=== PATIENT | female | born 1960 | race Caucasian/White ===

== ENCOUNTER 2022-03-10 09:27 | Inpatient (IN) ==
[2022-03-10] MEDS ORDERED: Morphine Sulfate 2 MG/ML SYRINGE IVP STA (13:02)
[2022-03-10 14:23] LABS: Immature Granulocytes % 0.5 % (0-4); Mean Corpuscular Hemoglobin 32.2 pg (28.0-33.3)
[2022-03-10 14:25] LABS: Basophils % 0.2 %; Eosinophils # 0.1 K/mcL (0.0-0.6); Eosinophils % 0.6 %; Hematocrit 39.4 % (35.3-44.9); Hemoglobin 13.5 g/dL (11.5-15.4); Immature Platelets 2.5 % (1.1-6.1); Lymphocytes # 0.5 K/mcL (0.6-4.6); Lymphocytes % 5.9 %; Mean Corpuscular HGB Conc 34.3 g/dL (31.6-35.5); Mean Platelet Volume 11.6 fL (9.4-12.4); Monocytes # 0.7 K/mcL (0.0-1.3); Monocytes % 8.1 %; Neutrophils # 6.9 K/mcL (1.6-8.9); Red Blood Count 4.19 M/mcL (3.82-4.97); Red Cell Distribution Width 12.2 % (11.5-14.5); Segmented Neutrophils % 84.7 %; White Blood Count 8.1 K/mcL (4.3-11.1)
[2022-03-10 14:30] LABS: Platelet Count 82 K/mcL (140-400)
[2022-03-10 14:35] LABS: Prothrombin Time 10.6 Seconds (9.4-12.1)
[2022-03-10 14:38] LABS: Activated Partial Thrombo Time 42.5 Seconds (26.0-36.0)
[2022-03-10] MEDS ORDERED: Ondansetron 4 MG/2 ML VIAL IVP PRN (15:44)
[2022-03-10] MEDS ORDERED: Naloxone 0.4 MG/ML INJ IVP PRN (15:44)
[2022-03-10 17:26] LABS: BUN/Creatinine Ratio 22 (6-26); Blood Urea Nitrogen 20 mg/dL (8-23); Calcium 9.9 mg/dL (8.6-10.3); Carbon Dioxide 27 mEq/L (23-29); Chloride 103 mEq/L (98-107); Glucose 96 mg/dL (70-105); Osmolality,Calculated 288 (280-300); Potassium 4.2 mEq/L (3.5-5.1); Sodium 138 mEq/L (136-145); eGFR For African Americans > 60 (> 60); eGFR For Non-African Americans > 60 (> 60)
[2022-03-10] MEDS: Ringers Solution, Lactated 1,000 ML IVC SCH (18:24)
[2022-03-10] MEDS: *HR* OxyCODONE Immed Rel 5 MG TABLET PO PRN (18:51)
[2022-03-10 20:23] LABS: Amorphous Sediment,Urine Few per hpf (None-Few); Bilirubin,Urine Negative (Negative); Blood,Urine Negative (Negative); Clarity,Urine Clear (Clear); Color,Urine Light-Yellow (Yellow); Glucose,Urine (UA) Normal (Normal); Ketones,Urine Negative (Negative); Leukocyte Esterase,Urine Trace (Negative); Mucus,Urine Few per lpf (None-Few); Nitrite,Urine Negative (Negative); Protein,Urine Negative (Neg-Trace); RBC,Urine 0-3 per hpf (0-3); Specific Gravity,Urine 1.015 (1.010-1.025); Squamous Epithelial Cell,Urine Few per hpf (None-Few); Urobilinogen,Urine Normal (Normal)
[2022-03-10] MEDS: Acetaminophen 325 MG TABLET PO PRN (23:20)
[2022-03-11] MEDS: *HR* OxyCODONE Immed Rel 5 MG TABLET PO PRN ×3 (03:31→18:06)
[2022-03-11 07:26] LABS: Basophils % 0.4 %; Eosinophils # 0.3 K/mcL (0.0-0.6); Eosinophils % 6.1 %; Hematocrit 34.5 % (35.3-44.9); Hemoglobin 11.7 g/dL (11.5-15.4); Immature Granulocytes % 0.8 % (0-4); Immature Platelets 2.4 % (1.1-6.1); Lymphocytes # 0.5 K/mcL (0.6-4.6); Lymphocytes % 8.6 %; Mean Corpuscular HGB Conc 33.9 g/dL (31.6-35.5); Mean Corpuscular Hemoglobin 32.3 pg (28.0-33.3); Mean Corpuscular Volume 95.3 fL (83.0-100.0); Mean Platelet Volume 9.5 fL (9.4-12.4); Monocytes # 0.6 K/mcL (0.0-1.3); Monocytes % 11.7 %; Neutrophils # 3.8 K/mcL (1.6-8.9); Red Blood Count 3.62 M/mcL (3.82-4.97); Red Cell Distribution Width 12.2 % (11.5-14.5); Segmented Neutrophils % 72.4 %; White Blood Count 5.2 K/mcL (4.3-11.1)
[2022-03-11 07:39] LABS: Platelet Count 74 K/mcL (140-400)
[2022-03-11 07:40] LABS: Albumin 3.9 g/dL (3.5-5.7); Albumin/Globulin Ratio 1.5 (1.1-2.2); Bilirubin,Direct 0.2 mg/dL (0.0-0.2); Bilirubin,Indirect 1.2 mg/dL (0.0-1.0); Bilirubin,Total 1.4 mg/dL (0.3-1.0); Globulin 2.6 g/dL (2.4-3.5); Total Protein 6.5 g/dL (6.4-8.9)
[2022-03-11 08:01] LABS: BUN/Creatinine Ratio 19 (6-26); Blood Urea Nitrogen 18 mg/dL (8-23); Calcium 8.4 mg/dL (8.6-10.3); Carbon Dioxide 21 mEq/L (23-29); Chloride 103 mEq/L (98-107); Glucose 92 mg/dL (70-105); Magnesium 1.8 mg/dL (1.6-2.6); Osmolality,Calculated 282 (280-300); Potassium 4.1 mEq/L (3.5-5.1); Sodium 135 mEq/L (136-145); eGFR For African Americans > 60 (> 60); eGFR For Non-African Americans > 60 (> 60)
[2022-03-11] MEDS: Acetaminophen 325 MG TABLET PO PRN ×2 (10:19→18:07)
[2022-03-11] MEDS: lisinopriL 10 MG TABLET PO SCH (10:19)
[2022-03-11] MEDS ORDERED: *HR* Enoxaparin 40 MG/0.4 ML SYRINGE SQ ONE (16:17)
[2022-03-11] MEDS: Ringers Solution, Lactated 1,000 ML IVC SCH (23:50)
[2022-03-12] MEDS: Ringers Solution, Lactated 1,000 ML IVC SCH ×2 (00:01→21:36)
[2022-03-12 04:57] LABS: Basophils % 0.6 %; Eosinophils # 0.3 K/mcL (0.0-0.6); Eosinophils % 5.5 %; Hematocrit 34.5 % (35.3-44.9); Hemoglobin 11.5 g/dL (11.5-15.4); Immature Granulocytes % 0.6 % (0-4); Lymphocytes # 0.4 K/mcL (0.6-4.6); Lymphocytes % 7.9 %; Mean Corpuscular HGB Conc 33.3 g/dL (31.6-35.5); Mean Corpuscular Hemoglobin 31.9 pg (28.0-33.3); Mean Corpuscular Volume 95.6 fL (83.0-100.0); Mean Platelet Volume 10.5 fL (9.4-12.4); Monocytes # 0.6 K/mcL (0.0-1.3); Monocytes % 10.7 %; Red Blood Count 3.61 M/mcL (3.82-4.97); Segmented Neutrophils % 74.7 %; White Blood Count 5.3 K/mcL (4.3-11.1)
[2022-03-12 04:58] LABS: Platelet Count 72 K/mcL (140-400)
[2022-03-12 05:13] LABS: BUN/Creatinine Ratio 18 (6-26); Blood Urea Nitrogen 17 mg/dL (8-23); Carbon Dioxide 25 mEq/L (23-29); Chloride 101 mEq/L (98-107); Glucose 106 mg/dL (70-105); Magnesium 1.8 mg/dL (1.6-2.6); Osmolality,Calculated 278 (280-300); Phosphorous 3.7 mg/dL (2.7-4.5); Potassium 4.2 mEq/L (3.5-5.1); Sodium 133 mEq/L (136-145); eGFR For African Americans > 60 (> 60); eGFR For Non-African Americans > 60 (> 60)
[2022-03-12] MEDS ORDERED: CeFAZolin Syr 2,000MG/20 ML 2,000 MG/20 ML SYRINGE IVPB ONE (10:32)
[2022-03-12] MEDS ORDERED: *HR* Propofol 200 MG/20 ML VIAL IVP ONE (10:45)
[2022-03-12] MEDS ORDERED: *HR* FentaNYL (PF) 100 MCG/2 ML VIAL ONE (10:46)
[2022-03-12] MEDS ORDERED: Lidocaine -MPF 2% 5 ML VIAL ONE (10:46)
[2022-03-12] MEDS ORDERED: Ondansetron 4 MG/2 ML VIAL ONE (10:46)
[2022-03-12] MEDS ORDERED: *HR* Midazolam HCl 2 MG/2 ML VIAL ONE (10:46)
[2022-03-12] MEDS ORDERED: *HR* HYDROmorphone PF 0.5 MG/0.5 ML SYRINGE IVP PRN (10:50)
[2022-03-12] MEDS ORDERED: *HR* FentaNYL (PF) 100 MCG/2 ML VIAL IVP PRN (10:50)
[2022-03-12] MEDS ORDERED: Ropivacaine/PF 0.5% 30 ML VIAL ONE (11:02)
[2022-03-12] MEDS ORDERED: *HR* HYDROMORPHONE 2 MG/ML VIAL ONE (11:50)
[2022-03-12] MEDS ORDERED: EPHEDrine 50 MG/ML VIAL ONE (12:10)
[2022-03-12] MEDS: lisinopriL 10 MG TABLET PO SCH (16:55)
[2022-03-12] MEDS: Acetaminophen 325 MG TABLET PO PRN (21:36)
[2022-03-12] MEDS: CeFAZolin 2,000 MG/120 ML BAG IVPB SCH (21:37)
[2022-03-13] MEDS: Ringers Solution, Lactated 1,000 ML IVC SCH (03:26)
[2022-03-13] MEDS: CeFAZolin 2,000 MG/120 ML BAG IVPB SCH (03:55)
[2022-03-13 06:56] LABS: Basophils % 0.2 %
[2022-03-13 06:58] LABS: Eosinophils % 0.6 %; Hemoglobin 8.8 g/dL (11.5-15.4); Immature Granulocytes % 0.8 % (0-4); Immature Platelets 2.4 % (1.1-6.1); Lymphocytes # 0.4 K/mcL (0.6-4.6); Mean Corpuscular HGB Conc 33.8 g/dL (31.6-35.5); Mean Corpuscular Hemoglobin 31.7 pg (28.0-33.3); Mean Corpuscular Volume 93.5 fL (83.0-100.0); Mean Platelet Volume 10.5 fL (9.4-12.4); Monocytes # 0.6 K/mcL (0.0-1.3); Monocytes % 9.7 %; Neutrophils # 5.2 K/mcL (1.6-8.9); Nucleated Red Blood Cells 0.3 /100 WBC (0); Red Blood Count 2.78 M/mcL (3.82-4.97); Red Cell Distribution Width 11.8 % (11.5-14.5); Segmented Neutrophils % 82.7 %; White Blood Count 6.3 K/mcL (4.3-11.1)
[2022-03-13 07:01] LABS: Platelet Count 84 K/mcL (140-400)
[2022-03-13 07:16] LABS: BUN/Creatinine Ratio 23 (6-26); Blood Urea Nitrogen 20 mg/dL (8-23); Calcium 8.5 mg/dL (8.6-10.3); Carbon Dioxide 26 mEq/L (23-29); Chloride 103 mEq/L (98-107); Glucose 131 mg/dL (70-105); Magnesium 1.8 mg/dL (1.6-2.6); Osmolality,Calculated 284 (280-300); Potassium 4.6 mEq/L (3.5-5.1); Sodium 135 mEq/L (136-145); eGFR For African Americans > 60 (> 60); eGFR For Non-African Americans > 60 (> 60)
[2022-03-13] MEDS: *HR* OxyCODONE Immed Rel 5 MG TABLET PO PRN ×2 (09:27→15:49)
[2022-03-13] MEDS: lisinopriL 10 MG TABLET PO SCH (09:28)
[2022-03-13] MEDS: Cyanocobalamin (B-12) 1,000 MCG/ML VIAL SQ SCH (09:28)
[2022-03-13] MEDS: *HR* Enoxaparin 40 MG/0.4 ML SYRINGE SQ SCH (09:29)
[2022-03-13] MEDS: Iron Sucrose Complex 250 MG in 0.9 % Sodium Chloride 250 ML IVPB SCH (09:40)
[2022-03-14 05:48] LABS: Basophils % 0.6 %; Red Blood Count 2.58 M/mcL (3.82-4.97); Red Cell Distribution Width 12.4 % (11.5-14.5)
[2022-03-14 05:50] LABS: Eosinophils # 0.4 K/mcL (0.0-0.6); Eosinophils % 5.7 %; Hematocrit 24.9 % (35.3-44.9); Hemoglobin 8.3 g/dL (11.5-15.4); Immature Granulocytes % 1.4 % (0-4); Immature Platelets 3.7 % (1.1-6.1); Lymphocytes # 0.6 K/mcL (0.6-4.6); Lymphocytes % 8.9 %; Mean Corpuscular HGB Conc 33.3 g/dL (31.6-35.5); Mean Corpuscular Hemoglobin 32.2 pg (28.0-33.3); Mean Corpuscular Volume 96.5 fL (83.0-100.0); Mean Platelet Volume 10.5 fL (9.4-12.4); Monocytes # 0.9 K/mcL (0.0-1.3); Neutrophils # 4.7 K/mcL (1.6-8.9); Segmented Neutrophils % 70.4 %; White Blood Count 6.6 K/mcL (4.3-11.1)
[2022-03-14 05:54] LABS: Platelet Count 82 K/mcL (140-400)
[2022-03-14 06:06] LABS: BUN/Creatinine Ratio 33 (6-26); Blood Urea Nitrogen 28 mg/dL (8-23); Calcium 8.4 mg/dL (8.6-10.3); Carbon Dioxide 26 mEq/L (23-29); Chloride 99 mEq/L (98-107); Glucose 101 mg/dL (70-105); Magnesium 1.8 mg/dL (1.6-2.6); Osmolality,Calculated 278 (280-300); Potassium 4.5 mEq/L (3.5-5.1); Sodium 131 mEq/L (136-145); eGFR For African Americans > 60 (> 60); eGFR For Non-African Americans > 60 (> 60)
[2022-03-14] MEDS: Cyanocobalamin (B-12) 1,000 MCG/ML VIAL SQ SCH (10:31)
[2022-03-14] MEDS: lisinopriL 10 MG TABLET PO SCH (10:31)
[2022-03-14] MEDS: Iron Sucrose Complex 250 MG in 0.9 % Sodium Chloride 250 ML IVPB SCH (10:32)
[2022-03-14] MEDS: *HR* OxyCODONE Immed Rel 5 MG TABLET PO PRN ×2 (14:44→21:46)
[2022-03-15 05:26] LABS: Basophils % 0.8 %; Eosinophils # 0.3 K/mcL (0.0-0.6); Eosinophils % 6.9 %; Hematocrit 22.7 % (35.3-44.9); Hemoglobin 7.6 g/dL (11.5-15.4); Immature Granulocytes % 2.1 % (0-4); Immature Platelets 2.9 % (1.1-6.1); Lymphocytes # 0.4 K/mcL (0.6-4.6); Lymphocytes % 8.6 %; Mean Corpuscular HGB Conc 33.5 g/dL (31.6-35.5); Mean Corpuscular Hemoglobin 31.7 pg (28.0-33.3); Mean Corpuscular Volume 94.6 fL (83.0-100.0); Mean Platelet Volume 9.8 fL (9.4-12.4); Monocytes # 0.6 K/mcL (0.0-1.3); Neutrophils # 3.3 K/mcL (1.6-8.9); Nucleated Red Blood Cells 0.6 /100 WBC (0); Red Cell Distribution Width 12.2 % (11.5-14.5); Segmented Neutrophils % 68.6 %; White Blood Count 4.8 K/mcL (4.3-11.1)
[2022-03-15 05:31] LABS: Platelet Count 83 K/mcL (140-400)
[2022-03-15 05:45] LABS: Alanine Aminotransferase 17 Units/L (7-52); Albumin 3.4 g/dL (3.5-5.7); Albumin/Globulin Ratio 1.5 (1.1-2.2); Alkaline Phosphatase 76 Units/L (34-104); Aspartate Amino Transferase 32 Units/L (13-39); BUN/Creatinine Ratio 26 (6-26); Bilirubin,Direct 0.2 mg/dL (0.0-0.2); Bilirubin,Indirect 0.7 mg/dL (0.0-1.0); Bilirubin,Total 0.9 mg/dL (0.3-1.0); Blood Urea Nitrogen 19 mg/dL (8-23); Calcium 8.3 mg/dL (8.6-10.3); Carbon Dioxide 27 mEq/L (23-29); Chloride 101 mEq/L (98-107); Globulin 2.2 g/dL (2.4-3.5); Glucose 100 mg/dL (70-105); Magnesium 1.9 mg/dL (1.6-2.6); Osmolality,Calculated 280 (280-300); Potassium 4.2 mEq/L (3.5-5.1); Sodium 134 mEq/L (136-145); Total Protein 5.6 g/dL (6.4-8.9); eGFR For African Americans > 60 (> 60); eGFR For Non-African Americans > 60 (> 60)
[2022-03-15] MEDS: lisinopriL 10 MG TABLET PO SCH (08:18)
[2022-03-15] MEDS: Iron Sucrose Complex 250 MG in 0.9 % Sodium Chloride 250 ML IVPB SCH (08:19)
[2022-03-15] MEDS: Acetaminophen 325 MG TABLET PO PRN (08:29)
[2022-03-15] MEDS: *HR* OxyCODONE Immed Rel 5 MG TABLET PO PRN ×2 (13:22→20:36)
[2022-03-16 04:58] LABS: Basophils % 0.7 %; Red Blood Count 2.32 M/mcL (3.82-4.97); Red Cell Distribution Width 12.6 % (11.5-14.5)
[2022-03-16 05:00] LABS: Eosinophils # 0.3 K/mcL (0.0-0.6); Eosinophils % 7.6 %; Hematocrit 22.5 % (35.3-44.9); Hemoglobin 7.5 g/dL (11.5-15.4); Immature Granulocytes % 2.5 % (0-4); Immature Platelets 3.2 % (1.1-6.1); Lymphocytes # 0.4 K/mcL (0.6-4.6); Lymphocytes % 9.4 %; Mean Corpuscular HGB Conc 33.3 g/dL (31.6-35.5); Mean Corpuscular Hemoglobin 32.3 pg (28.0-33.3); Mean Platelet Volume 9.5 fL (9.4-12.4); Monocytes # 0.6 K/mcL (0.0-1.3); Monocytes % 13.7 %; Nucleated Red Blood Cells 0.7 /100 WBC (0); Segmented Neutrophils % 66.1 %; White Blood Count 4.5 K/mcL (4.3-11.1)
[2022-03-16 05:01] LABS: Platelet Count 77 K/mcL (140-400)
[2022-03-16 05:17] LABS: BUN/Creatinine Ratio 21 (6-26); Blood Urea Nitrogen 17 mg/dL (8-23); Calcium 8.2 mg/dL (8.6-10.3); Carbon Dioxide 28 mEq/L (23-29); Chloride 102 mEq/L (98-107); Glucose 95 mg/dL (70-105); Osmolality,Calculated 281 (280-300); Potassium 4.2 mEq/L (3.5-5.1); Sodium 135 mEq/L (136-145); eGFR For African Americans > 60 (> 60); eGFR For Non-African Americans > 60 (> 60)
[2022-03-16] MEDS: lisinopriL 10 MG TABLET PO SCH (08:03)
[2022-03-16] MEDS: *HR* OxyCODONE Immed Rel 5 MG TABLET PO PRN ×2 (10:16→23:12)
[2022-03-16] MEDS: Acetaminophen 325 MG TABLET PO PRN (19:31)
[2022-03-17 03:58] LABS: Basophils % 0.9 %; Eosinophils # 0.3 K/mcL (0.0-0.6); Eosinophils % 6.3 %; Hematocrit 22.7 % (35.3-44.9); Hemoglobin 7.6 g/dL (11.5-15.4); Immature Platelets 3.6 % (1.1-6.1); Lymphocytes # 0.5 K/mcL (0.6-4.6); Lymphocytes % 11.2 %; Mean Corpuscular HGB Conc 33.5 g/dL (31.6-35.5); Mean Corpuscular Hemoglobin 32.2 pg (28.0-33.3); Mean Corpuscular Volume 96.2 fL (83.0-100.0); Mean Platelet Volume 11.1 fL (9.4-12.4); Monocytes # 0.6 K/mcL (0.0-1.3); Nucleated Red Blood Cells 0.4 /100 WBC (0); Red Blood Count 2.36 M/mcL (3.82-4.97); Red Cell Distribution Width 12.9 % (11.5-14.5); Segmented Neutrophils % 66.6 %; White Blood Count 4.5 K/mcL (4.3-11.1)
[2022-03-17 04:03] LABS: Platelet Count 85 K/mcL (140-400)
[2022-03-17 04:14] LABS: BUN/Creatinine Ratio 24 (6-26); Blood Urea Nitrogen 21 mg/dL (8-23); Calcium 8.5 mg/dL (8.6-10.3); Carbon Dioxide 29 mEq/L (23-29); Chloride 102 mEq/L (98-107); Glucose 96 mg/dL (70-105); Magnesium 2.1 mg/dL (1.6-2.6); Osmolality,Calculated 285 (280-300); Potassium 4.5 mEq/L (3.5-5.1); Sodium 136 mEq/L (136-145); eGFR For African Americans > 60 (> 60); eGFR For Non-African Americans > 60 (> 60)
[2022-03-17] MEDS: lisinopriL 10 MG TABLET PO SCH (08:48)
[2022-03-17] MEDS: *HR* OxyCODONE Immed Rel 5 MG TABLET PO PRN ×2 (11:35→20:36)
[2022-03-18 06:15] LABS: Hemoglobin 7.9 g/dL (11.5-15.4)
[2022-03-18 06:17] LABS: Basophils % 0.8 %; Eosinophils # 0.3 K/mcL (0.0-0.6); Eosinophils % 6.8 %; Hematocrit 23.6 % (35.3-44.9); Immature Granulocytes % 3.9 % (0-4); Immature Platelets 3.3 % (1.1-6.1); Lymphocytes # 0.4 K/mcL (0.6-4.6); Mean Corpuscular HGB Conc 33.5 g/dL (31.6-35.5); Mean Corpuscular Hemoglobin 32.1 pg (28.0-33.3); Mean Corpuscular Volume 95.9 fL (83.0-100.0); Mean Platelet Volume 10.9 fL (9.4-12.4); Monocytes # 0.5 K/mcL (0.0-1.3); Monocytes % 12.3 %; Neutrophils # 2.5 K/mcL (1.6-8.9); Red Blood Count 2.46 M/mcL (3.82-4.97); Red Cell Distribution Width 13.2 % (11.5-14.5); Segmented Neutrophils % 65.2 %; White Blood Count 3.8 K/mcL (4.3-11.1)
[2022-03-18 06:30] LABS: Platelet Count 82 K/mcL (140-400)
[2022-03-18 07:15] LABS: BUN/Creatinine Ratio 27 (6-26); Blood Urea Nitrogen 22 mg/dL (8-23); Calcium 8.7 mg/dL (8.6-10.3); Carbon Dioxide 28 mEq/L (23-29); Chloride 101 mEq/L (98-107); Glucose 96 mg/dL (70-105); Magnesium 2.1 mg/dL (1.6-2.6); Osmolality,Calculated 285 (280-300); Potassium 4.3 mEq/L (3.5-5.1); Sodium 136 mEq/L (136-145); eGFR For African Americans > 60 (> 60); eGFR For Non-African Americans > 60 (> 60)
[2022-03-18] MEDS: lisinopriL 10 MG TABLET PO SCH (09:15)
[2022-03-18] MEDS: Acetaminophen 325 MG TABLET PO PRN (10:40)
[2022-03-18] MEDS: *HR* OxyCODONE Immed Rel 5 MG TABLET PO PRN ×2 (12:40→20:47)
[2022-03-19 02:17] LABS: Basophils % 0.7 %
[2022-03-19 02:19] LABS: Eosinophils # 0.3 K/mcL (0.0-0.6); Eosinophils % 7.2 %; Hematocrit 24.9 % (35.3-44.9); Hemoglobin 8.2 g/dL (11.5-15.4); Immature Granulocytes % 2.4 % (0-4); Lymphocytes # 0.6 K/mcL (0.6-4.6); Mean Corpuscular HGB Conc 32.9 g/dL (31.6-35.5); Mean Corpuscular Volume 97.3 fL (83.0-100.0); Mean Platelet Volume 10.3 fL (9.4-12.4); Monocytes # 0.6 K/mcL (0.0-1.3); Monocytes % 13.3 %; Red Blood Count 2.56 M/mcL (3.82-4.97); Red Cell Distribution Width 13.7 % (11.5-14.5); Segmented Neutrophils % 64.4 %; White Blood Count 4.6 K/mcL (4.3-11.1)
[2022-03-19 02:24] LABS: Platelet Count 99 K/mcL (140-400)
[2022-03-19 02:43] LABS: BUN/Creatinine Ratio 28 (6-26); Blood Urea Nitrogen 23 mg/dL (8-23); Calcium 8.6 mg/dL (8.6-10.3); Carbon Dioxide 27 mEq/L (23-29); Chloride 99 mEq/L (98-107); Glucose 118 mg/dL (70-105); Magnesium 2.1 mg/dL (1.6-2.6); Osmolality,Calculated 283 (280-300); Potassium 4.1 mEq/L (3.5-5.1); Sodium 134 mEq/L (136-145); eGFR For African Americans > 60 (> 60); eGFR For Non-African Americans > 60 (> 60)
[2022-03-19] MEDS: *HR* OxyCODONE Immed Rel 5 MG TABLET PO PRN ×3 (04:40→21:30)
[2022-03-19] MEDS: lisinopriL 10 MG TABLET PO SCH (10:11)
[2022-03-19] MEDS: *HR* Enoxaparin 40 MG/0.4 ML SYRINGE SQ SCH (10:30)
[2022-03-20 01:39] LABS: Basophils % 0.8 %; Hemoglobin 8.1 g/dL (11.5-15.4); Nucleated Red Blood Cells 0.5 /100 WBC (0)
[2022-03-20 01:41] LABS: Eosinophils # 0.3 K/mcL (0.0-0.6); Eosinophils % 7.9 %; Hematocrit 24.9 % (35.3-44.9); Immature Granulocytes % 2.4 % (0-4); Immature Platelets 2.4 % (1.1-6.1); Lymphocytes # 0.5 K/mcL (0.6-4.6); Lymphocytes % 12.5 %; Mean Corpuscular HGB Conc 32.5 g/dL (31.6-35.5); Mean Corpuscular Hemoglobin 32.5 pg (28.0-33.3); Mean Platelet Volume 9.5 fL (9.4-12.4); Monocytes # 0.6 K/mcL (0.0-1.3); Monocytes % 15.2 %; Neutrophils # 2.3 K/mcL (1.6-8.9); Red Blood Count 2.49 M/mcL (3.82-4.97); Red Cell Distribution Width 14.2 % (11.5-14.5); Segmented Neutrophils % 61.2 %; White Blood Count 3.7 K/mcL (4.3-11.1)
[2022-03-20 01:44] LABS: Platelet Count 85 K/mcL (140-400)
[2022-03-20 01:55] LABS: BUN/Creatinine Ratio 29 (6-26); Blood Urea Nitrogen 23 mg/dL (8-23); Calcium 8.4 mg/dL (8.6-10.3); Carbon Dioxide 25 mEq/L (23-29); Chloride 101 mEq/L (98-107); Glucose 98 mg/dL (70-105); Osmolality,Calculated 278 (280-300); Potassium 4.3 mEq/L (3.5-5.1); Sodium 132 mEq/L (136-145); eGFR For African Americans > 60 (> 60); eGFR For Non-African Americans > 60 (> 60)
[2022-03-20] MEDS: Acetaminophen 325 MG TABLET PO PRN ×2 (03:21→10:48)
[2022-03-20] MEDS: lisinopriL 10 MG TABLET PO SCH (10:48)
[2022-03-20] MEDS: *HR* Enoxaparin 40 MG/0.4 ML SYRINGE SQ SCH (11:18)
[2022-03-20] MEDS: *HR* OxyCODONE Immed Rel 5 MG TABLET PO PRN ×2 (13:55→20:47)
[2022-03-21] MEDS: *HR* OxyCODONE Immed Rel 5 MG TABLET PO PRN (03:08)
[2022-03-21] MEDS: *HR* Enoxaparin 40 MG/0.4 ML SYRINGE SQ SCH (09:22)
[2022-03-21] MEDS: lisinopriL 10 MG TABLET PO SCH (09:22)
[2022-03-21] MEDS: Acetaminophen 325 MG TABLET PO PRN (13:03)
[2022-03-21 14:48] VITALS: BP 112/62; PULSE 82; TEMP 97.8; O2SAT 100
== END 2022-03-21 17:30 | disposition home health service (06) | DRG 481 ==
LOC: EMEROOARM 09:27 → 4WAOSI 09:27 → SUATTDRO 16:48 → 4WAOSI 17:45 → SUATTDRO 03-11 14:09
PROVIDERS: ADMIT Student in an Organized Health Care Education/Training Program; ATTEND Pharmacist